=== PATIENT | female | born 1960 | race Hispanic/Latino ===

== ENCOUNTER → 2021-04-16 | Day surgery (SDC) | payer OTHER ==
[~2021-04-16] MED LIST: BUPIVACAINE HCL 0.5% INJ 30 ML VIAL INJ ONE; CLINDAMYCIN PHOS 900MG/ 50ML 50 ML IV ONE; DEXAMETHASONE SOD PHOS INJ 4 MG/ML VIAL ONE; FENTANYL CITRATE/PF 100MCG/2 ML INJ ONE; LEVOFLOXACIN PO; LIDOCAINE HCL 2% LOCAL INJ 5 ML SDV VIAL INJ ONE; MIDAZOLAM HCL 2 MG/2 ML VIAL ONE; MUPIROCIN 2% OINT 22 GM TUBE ONE; ONDANSETRON HCL INJ 2MG/ML 2ML 2 MG/ML VIAL ONE; POVIDONE IODINE 0.05% 0.05 % ML PO ONE; PROPOFOL IV EMULSION 10 MG/ML 20 ML VIAL ONE; SEVOFLURANE INHAL SOLN 250 ML PEN BTL ONE
[2021-04-16 11:45] VITALS: BP 128/79
== END | disposition home or self-care (01) ==
LOC: OR 06:50
PROVIDERS: ATTEND Podiatrist Foot & Ankle Surgery
DX: L02.612 Cutaneous abscess of left foot (principal); S91.332A Puncture wound without foreign body, left foot, initial encounter; K21.9 Gastro-esophageal reflux disease without esophagitis; X58.XXXA Exposure to other specified factors, initial encounter; Z88.0 Allergy status to penicillin; Z01.810 Encounter for preprocedural cardiovascular examination
CPT/HCPCS: 11423; 87071; 87075; 87102; 87205; 87206; 88305; 93005; J1100; J2001; J2250; J2405; J2704; J3010; Q4150; 88304